=== PATIENT | female | born 1980 | race Caucasian/White ===

== ENCOUNTER → 2016-12-17 | Outpatient (CLI) | payer BC | LOC: FIMAGING 14:50 | PROVIDERS: ATTEND Obstetrics & Gynecology | DX: O09.523 Supervision of elderly multigravida, third trimester (principal); Z3A.36 36 weeks gestation of pregnancy ==

== ENCOUNTER → 2016-12-30 | Outpatient (CLI) | payer BC | LOC: FIMAGING 15:38 | PROVIDERS: ATTEND Midwife | DX: M79.605 Pain in left leg (principal); M79.89 Other specified soft tissue disorders ==

== ENCOUNTER 2017-01-11 01:50 | Inpatient (IN) | payer BC ==
[2017-01-11] MEDS ORDERED: LIDOCAINE 1% 30 ML SDV SC PRN (02:02)
[2017-01-11] MEDS ORDERED: LR 1,000 ML IV PRN (02:02)
[2017-01-11] MEDS ORDERED: OLIVE OIL 118 ML BTL MISC PRN (02:02)
[2017-01-11] MEDS ORDERED: TERBUTALINE SULFATE 1 MG/ML VIAL IV PRN (02:02)
[2017-01-11] MEDS ORDERED: EPSOM SALT 454 GM TP PRN (02:02)
[2017-01-11] MEDS ORDERED: OXYTOCIN/RINGERS LACTATE 1,000 ML IV PRN (02:02)
[2017-01-11] MEDS ORDERED: OXYTOCIN 10 UNIT/ML VIAL ONE (02:10)
[2017-01-11] MEDS ORDERED: MISOPROSTOL 200 MCG TAB ONE (02:10)
[2017-01-11] MEDS ORDERED: OLIVE OIL 118 ML BTL ONE (02:10)
[2017-01-11] MEDS ORDERED: AMMONIA AROMATIC 1 EACH AMP IH ONE (02:10)
[2017-01-11] MEDS ORDERED: LIDOCAINE 1% 30 ML SDV ONE (02:10)
[2017-01-11] MEDS ORDERED: TERBUTALINE SULFATE 1 MG/ML VIAL ONE (02:10)
--- NOTE | 2017-01-11 02:34 | PDGENHP ---
History and Physical History and Physical: 36 y.o. at 40 weeks in active labor with spontaneous onset of labor at 2300.
--- NOTE | 2017-01-11 02:37 | OBPROG ---
OBG Progress Note Assessment/Plan: Assessment: 36 y.o. female presents at 40 weeks in active labor with spontaneous onset of labor at 2300. Plan: Admit to L&D. EFM and Scissors per protocol. VS per protocol. Anticipate . 01/11/17 02:34 Subjective: Breathing well through uterine contractions. 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 - SVE Dilation (cm): 8 Effacement (%): 100 Station: +1 Current Contraction Pattern: Regular FHR (bpm): 130 FHR Pattern Variability: Moderate FHR Category: 2 Membranes: Intact ICD10 Worksheet Patient Problems: Problems Problem Status Onset Active labor at term Acute - ICD10 Problem Qualifiers (1) Active labor at term
[2017-01-11] MEDS ORDERED: ACETAMINOPHEN 325 MG TAB PO PRN (05:46)
[2017-01-11] MEDS ORDERED: HYDROCORTISONE 0.5% CREAM TP PRN (05:46)
[2017-01-11] MEDS ORDERED: OXYCODONE/APAP 5/325 TAB PO PRN (05:46)
[2017-01-11] MEDS ORDERED: SIMETHICONE 80 MG TAB CHEW PO PRN (05:46)
--- NOTE | 2017-01-11 05:46 | OBPROC ---
- Labor and Delivery Onset of Contractions Date: 01/10/17 Onset of Contractions Time: 23:30 Onset of Contractions Type: Spontaneous Rupture of Membranes Date: 01/11/17 Rupture of Membranes Time: 02:42 Rupture of Membranes Type: Artificial Amniotic Fluid Color: Clear Dilation Complete Time: 04:15 Delivery Type: Spontaneous Placenta Delivery Date: 01/11/17 Placenta Delivery Time: 05:23 Episiotomy/Laceration: 2nd Degree Repair: 3-0, Vicryl EBL: 300 Complications: None - Medications Labor Augmentation/Induction Meds Used: None - Info Infant A Delivery Date: 01/11/17 Delivery Time: 05:15 Sex of : Female Score (1 Min): 8 Score (5 Min): 9
[2017-01-11] MEDS: IBUPROFEN 600 MG TAB PO PRN ×3 (06:21→18:36)
[2017-01-11] MEDS: HYDROCODONE/APAP 5/325 TAB PO PRN ×2 (07:20→14:21)
[2017-01-11] MEDS: DOCUSATE SODIUM 100 MG CAP PO PRN (22:13)
[2017-01-12] MEDS: IBUPROFEN 600 MG TAB PO PRN ×4 (00:14→18:37)
[2017-01-12] MEDS: DOCUSATE SODIUM 100 MG CAP PO PRN (09:25)
--- NOTE | 2017-01-12 10:02 | SOAPPROG ---
SOAP Progress Note Assessment/Plan: Assessment: 36 y.o. female s/p PPD#1. Recovering well with good pain control. Plan: Routine orders. consult. Anticipate discharge tomorrow. 01/11/17 02:34 01/12/17 09:59 Subjective: Reports feeling well with good pain control. with assistance. Ambulating well without vertigo. Eating and drinking well without nausea or vomiting. Voiding and stooling without difficulty. Appropriate mood with good support system. Objective: Vital Signs Temp Pulse Resp BP Pulse Ox 36.9 C 69 16 106/70 94 01/11/17 20:00 01/11/17 20:00 01/11/17 20:00 01/11/17 20:00 01/11/17 11:40 01/11/17 01/12/17 01/13/17 05:59 05:59 05:59 Output Total 300 Balance -300 - Time Spent With Patient Time Spent With Patient: 20 minutes - Pending Discharge Pending Discharge Within 24 Hours: Yes Pending Discharge Date: 01/13/17 Pending Discharge Time: 11:00 Physical Exam - Physical Exam General Appearance: WD/WN, alert, no apparent distress EENT: normal ENT inspection Neck: full range of motion, normal inspection Respiratory: lungs clear, normal breath sounds Cardiac/Chest: regular rate, rhythm Abdomen: non-tender, soft Pelvic Exam: normal external exam Rectal: deferred Back: Normal inspection Skin: normal color, warm/dry Lymphatic: no adenopathy Extremities: normal range of motion, non-tender Neuro/Psych: alert, normal mood/affect, oriented x 3 ICD10 Worksheet Patient Problems: Problems Problem Status Onset Active labor at term Acute - ICD10 Problem Qualifiers (1) Active labor at term
[2017-01-12] MEDS: HYDROCODONE/APAP 5/325 TAB PO PRN (13:59)
[2017-01-12 22:02] VITALS: RESP 14
[2017-01-13] MEDS: IBUPROFEN 600 MG TAB PO PRN ×3 (01:10→12:05)
--- NOTE | 2017-01-13 07:43 | OBGCSDC ---
General Delivery Information - General Info : 3 Para: 1 Delivery Date: 01/11/17 Delivery Time: 05:19 Delivery Physician/CNM: Diya Appiah Admission Date: 01/11/17 - Info Infant A Sex of : Female Score (1 Min): 8 Score (5 Min): 9 Vaginal - Diagnosis IUP (Weeks): 40 Labor: Spontaneous Presentation: OA Rupture of Membranes Type: Artificial Amniotic Fluid Color: Clear Laceration: 2nd Degree Repair: 3-0, Vicryl Complications: None - Operations/Procedures Delivery Type: Spontaneous - Delivery EBL: 300 Discharge Information - Discharge Information Discharge Medications: Ibuprofen, Vitamins, Vicodin Condition: Good Instruction/Follow Up: Six Weeks Discharge Physician/CNM: Diya Appiah Discharge Date: 01/13/17 Dictated: No
[2017-01-13 10:56] VITALS: BP 91/62; PULSE 58; TEMP 97.6; O2SAT 96
[2017-01-13] MEDS: DOCUSATE SODIUM 100 MG CAP PO PRN (12:05)
== END 2017-01-13 13:20 | disposition home or self-care (01) | DRG 775 ==
LOC: OBSVTOIN 01:50 → FLD 01:50 → FOB 11:45
PROVIDERS: ADMIT Midwife; ATTEND Obstetrics & Gynecology
DX: O70.1 Second degree perineal laceration during delivery (principal); O09.513 Supervision of elderly primigravida, third trimester; Z3A.40 40 weeks gestation of pregnancy; Z37.0 Single live birth
CPT/HCPCS: J3105

== ENCOUNTER → 2017-07-23 | Outpatient (CLI) | payer BC | LOC: FIMAGING 12:59 | PROVIDERS: ATTEND General Practice | DX: M26.609 Unspecified temporomandibular joint disorder, unspecified side (principal) ==

== ENCOUNTER → 2017-09-02 | Outpatient (CLI) | payer BC | LOC: FIMAGING 07:54 | PROVIDERS: ATTEND General Practice | DX: S03.01XA Dislocation of jaw, right side, initial encounter (principal); M19.93 Secondary osteoarthritis, unspecified site ==

== ENCOUNTER → 2018-08-04 | Outpatient (CLI) | payer BC | LOC: FIMAGING 07:37 | PROVIDERS: ATTEND Obstetrics & Gynecology | DX: Z34.82 Encounter for supervision of other normal pregnancy, second trimester (principal); Z3A.20 20 weeks gestation of pregnancy ==